=== PATIENT | female | born 1970 | race African-American/Black ===

== ENCOUNTER 2021-10-03 07:27 | Observation (INO) | payer OTHER ==
[~2021-10-03] VITALS: Ht 160 cm; Wt 96.6 kg
[2021-10-03] MEDS ORDERED: ASPIRIN 81 MG CHEW TAB PO STA (07:42)
[2021-10-03 08:32] LABS: BASOPHILS % 0.6 % (0.0-1.0); EOSINOPHILS # (AUTO) 0.3 (0.0-0.4); EOSINOPHILS % 5.5 % (0.0-6.0); HEMATOCRIT 39.5 % (34.2-44.1); HEMOGLOBIN 12.8 g/dL (12.0-16.0); LYMPHOCYTES # (AUTO) 2.2 (1.0-3.2); LYMPHOCYTES % 39.6 % (18.0-39.1); MEAN CORPUSCULAR HEMOGLOBIN 28.6 pg (28-32); MEAN CORPUSCULAR HGB CONC 32.4 g/dL (31-35); MEAN CORPUSCULAR VOLUME 88.4 fL (81-99); MONOCYTES # (AUTO) 0.4 (0.2-0.8); MONOCYTES % 7.2 % (4.4-11.3); NEUTROPHILS # (AUTO) 2.6 (2.1-6.9); NEUTROPHILS % 46.9 % (38.7-80.0); PLATELET COUNT 447 x10e3/uL (140-360); RED BLOOD COUNT 4.47 x10e6/uL (3.6-5.1); RED CELL DISTRIBUTION WIDTH 13.7 % (11.7-14.4)
[2021-10-03 08:40] LABS: INR 0.93; PARTIAL THROMBOPLASTIN TIME 30.9 seconds (23.8-35.5); PROTHROMBIN TIME 13.3 seconds (11.9-14.5)
[2021-10-03 08:50] LABS: ALBUMIN 3.5 g/dL (3.5-5.0); ALBUMIN/GLOBULIN RATIO 0.9 (0.8-2.0); ANION GAP 11.7 mmol/L (8-16); CALCIUM 7.9 mg/dL (8.4-10.2); CREATININE, SERUM 0.82 mg/dL (0.57-1.11); MAGNESIUM 1.9 MG/DL (1.3-2.1)
[2021-10-03 08:52] LABS: POTASSIUM 2.7 mmol/L (3.5-5.1)
[2021-10-03 08:56] LABS: CREATINE KINASE MB 0.5 ng/mL (0-5.0)
[2021-10-03] MEDS ORDERED: NITROGLYCERIN 0.4 MG SUBL SL PRN (09:15)
[2021-10-03] MEDS ORDERED: ONDANSETRON HCL INJ 2MG/ML 2ML 2 MG/ML VIAL IV PRN (09:15)
[2021-10-03] MEDS ORDERED: Morphine 2mg Syringe 2 MG/ML SYR IV PRN (09:15)
[2021-10-03] MEDS ORDERED: POTASSIUM CHLORIDE 20 MEQ TAB CR PO ONE ×2 (09:30→16:00)
[2021-10-03] MEDS: METOPROLOL TARTRATE 25 MG TAB PO SCH ×2 (09:36→21:10)
[2021-10-03] MEDS ORDERED: ENOXAPARIN SODIUM INJ 100 MG/ML SYR SC ONE (10:00)
[2021-10-03 12:20] VITALS: BP 169/89
[2021-10-03 12:30] VITALS: BP 169/89
[2021-10-03] MEDS ORDERED: HYDROCHLOROTHIA25 MG PO (14:57)
[2021-10-03] MEDS ORDERED: COZAAR100 MG PO (14:57)
[2021-10-03] MEDS ORDERED: AMLODIPINE BESY10 MG PO (14:57)
[2021-10-03 15:44] LABS: CREATINE KINASE MB 0.5 ng/mL (0-5.0)
[2021-10-03 16:39] VITALS: BP 152/76
[2021-10-03 20:18] VITALS: BP 120/59
[2021-10-03 21:00] VITALS: BP 120/59
[2021-10-03] MEDS: FAMOTIDINE 20 MG/2 ML VIAL IV SCH (21:29)
[2021-10-03 22:09] LABS: CREATINE KINASE MB 0.5 ng/mL (0-5.0)
[2021-10-04] VITALS (8 sets, daily range): BP systolic 119–171; BP diastolic 60–79
[2021-10-04] MEDS ORDERED: ACETAMINOPHEN 325 MG TAB PO PRN (05:00)
[2021-10-04 06:06] LABS: BASOPHILS # (AUTO) 0.1 (0.0-0.1); EOSINOPHILS # (AUTO) 0.4 (0.0-0.4); EOSINOPHILS % 7.5 % (0.0-6.0); HEMATOCRIT 39.8 % (34.2-44.1); HEMOGLOBIN 12.7 g/dL (12.0-16.0); LYMPHOCYTES # (AUTO) 2.5 (1.0-3.2); LYMPHOCYTES % 48.7 % (18.0-39.1); MEAN CORPUSCULAR HGB CONC 31.9 g/dL (31-35); MEAN CORPUSCULAR VOLUME 87.9 fL (81-99); MONOCYTES # (AUTO) 0.4 (0.2-0.8); NEUTROPHILS # (AUTO) 1.8 (2.1-6.9); NEUTROPHILS % 35.6 % (38.7-80.0); PLATELET COUNT 405 x10e3/uL (140-360); RED BLOOD COUNT 4.53 x10e6/uL (3.6-5.1); RED CELL DISTRIBUTION WIDTH 13.6 % (11.7-14.4)
[2021-10-04 06:32] LABS: ALBUMIN 3.3 g/dL (3.5-5.0); ALBUMIN/GLOBULIN RATIO 0.8 (0.8-2.0)
[2021-10-04 06:49] LABS: CREATININE, SERUM 0.68 mg/dL (0.57-1.11)
[2021-10-04] MEDS ORDERED: POTASSIUM CHLORIDE 20 MEQ TAB CR PO ONE (07:30)
[2021-10-04 08:23] LABS: CHOL/HDL RATIO 4.5 (3.0-3.6)
[2021-10-04 08:59] LABS: CREATINE KINASE MB 0.4 ng/mL (0-5.0)
[2021-10-04] MEDS: FAMOTIDINE 20 MG/2 ML VIAL IV SCH ×2 (09:09→20:38)
[2021-10-04] MEDS: ASPIRIN 81 MG ENTERIC COATED PO SCH (09:09)
[2021-10-04] MEDS: LOSARTAN POTASSIUM 100 MG TAB PO SCH (09:09)
[2021-10-04] MEDS: METOPROLOL TARTRATE 25 MG TAB PO SCH ×2 (09:10→20:39)
[2021-10-05] VITALS (13 sets, daily range): BP systolic 105–180; BP diastolic 64–96
[2021-10-05] MEDS: ASPIRIN 81 MG ENTERIC COATED PO SCH (08:21)
[2021-10-05] MEDS: FAMOTIDINE 20 MG/2 ML VIAL IV SCH (08:21)
[2021-10-05] MEDS: LOSARTAN POTASSIUM 100 MG TAB PO SCH (08:21)
[2021-10-05] MEDS: METOPROLOL TARTRATE 25 MG TAB PO SCH (08:22)
[2021-10-05] MEDS ORDERED: VERAPAMIL HCL 2.5 MG/ML 2 ML VIAL ONE (10:43)
[2021-10-05] MEDS ORDERED: HEPARIN SOD (PORCINE) 1000 UNIT/ML 30ML ONE (10:43)
[2021-10-05] MEDS ORDERED: FENTANYL CITRATE/PF 100MCG/2 ML INJ ONE (10:43)
[2021-10-05] MEDS ORDERED: MIDAZOLAM HCL 2 MG/2 ML VIAL ONE (10:43)
[2021-10-05] MEDS ORDERED: NITROGLYCERIN/D5W 200 MCG/ML 250 ML ONE (10:44)
[2021-10-05] MEDS ORDERED: LIDOCAINE HCL 2% LOCAL 20 ML VIAL ONE (10:44)
[2021-10-05] MEDS ORDERED: IOPAMIDOL 370 MG/ML 100 ML INFUS..BTL INJ ONE (10:44)
[2021-10-05] MEDS ORDERED: HEPARIN SOD/SOD CHLORIDE 2,000 ML ONE (10:44)
[2021-10-05] MEDS ORDERED: SODIUM CHLORIDE 0.9% 1000ML 1,000 ML ONE (10:44)
== END 2021-10-05 15:15 | disposition home or self-care (01) ==
LOC: ER 07:37 → INTOOBSV 09:14 → ERHOLD 09:14 → MED/SURG 12:27
PROVIDERS: ADMIT Internal Medicine; ATTEND Internal Medicine
DX: I11.0 Hypertensive heart disease with heart failure (principal); I50.23 Acute on chronic systolic (congestive) heart failure; K21.9 Gastro-esophageal reflux disease without esophagitis; R07.2 Precordial pain; E87.6 Hypokalemia; E66.01 Morbid (severe) obesity due to excess calories; Z68.37 Body mass index [BMI] 37.0-37.9, adult; E78.5 Hyperlipidemia, unspecified; R94.39 Abnormal result of other cardiovascular function study; Z88.2 Allergy status to sulfonamides; Z88.8 Allergy status to other drugs, medicaments and biological substances; Z20.822 Contact with and (suspected) exposure to COVID-19
CPT/HCPCS: 36415 ×2; 71045; 80053 ×2; 80061; 82550 ×2; 82553 ×2; 83735; 83880; 84484 ×2; 85025 ×2; 85610; 85730; 93005; 93306; 93458; 94799 ×2; 99284; C1887; G0378 ×3; J1644; J1650; J2001; J2250; J3010; J7030; Q9967; U0002; 99152

== ENCOUNTER 2022-05-02 09:27 | Emergency (ER) | payer SELFPAY ==
[~2022-05-02] VITALS: Ht 160 cm; Wt 96.6 kg
[~2022-05-02 09:27] MED LIST: AMLODIPINE BESY10 MG PO; COZAAR100 MG PO; HYDROCHLOROTHIA25 MG PO
[2022-05-02] MEDS ORDERED: KETOROLAC TROMETHAMINE 30 MG/ML VIAL IV STA (10:01)
[2022-05-02] MEDS ORDERED: ONDANSETRON HCL INJ 2MG/ML 2ML 2 MG/ML VIAL IV STA (10:01)
[2022-05-02] MEDS ORDERED: Morphine 2mg Syringe 2 MG/ML SYR IV STA (10:01)
[2022-05-02 10:14] LABS: BASOPHILS # (AUTO) 0.1 (0.0-0.1); BASOPHILS % 0.7 % (0.0-1.0); EOSINOPHILS # (AUTO) 0.2 (0.0-0.4); EOSINOPHILS % 2.1 % (0.0-6.0); HEMATOCRIT 41.1 % (34.2-44.1); HEMOGLOBIN 13.6 g/dL (12.0-16.0); LYMPHOCYTES # (AUTO) 2.1 (1.0-3.2); LYMPHOCYTES % 27.8 % (18.0-39.1); MEAN CORPUSCULAR HEMOGLOBIN 28.8 pg (28-32); MEAN CORPUSCULAR HGB CONC 33.1 g/dL (31-35); MEAN CORPUSCULAR VOLUME 86.9 fL (81-99); MONOCYTES # (AUTO) 0.4 (0.2-0.8); MONOCYTES % 5.4 % (4.4-11.3); NEUTROPHILS # (AUTO) 4.8 (2.1-6.9); NEUTROPHILS % 63.7 % (38.7-80.0); PLATELET COUNT 464 x10e3/uL (140-360); RED BLOOD COUNT 4.73 x10e6/uL (3.6-5.1); RED CELL DISTRIBUTION WIDTH 13.5 % (11.7-14.4)
[2022-05-02] MEDS ORDERED: SODIUM CHLORIDE 0.9% 500ML 500 ML IV ONE (10:15)
[2022-05-02 10:19] LABS: CLARITY,URINE HAZY (CLEAR); COLOR,URINE YELLOW (YELLOW); KETONES,URINE NEGATIVE (NEGATIVE); LEUKOCYTE ESTERASE ,URINE NEGATIVE (NEGATIVE); NITRITE,URINE NEGATIVE (NEGATIVE); PROTEIN,URINE DIPSTICK NEGATIVE (NEGATIVE); URINE UROBILINOGEN 0.2 mg/dL (0.2 - 1)
[2022-05-02 10:31] LABS: ALBUMIN 3.8 g/dL (3.5-5.0); ALBUMIN/GLOBULIN RATIO 0.8 (0.8-2.0); ANION GAP 16.2 mmol/L (8-16); CALCIUM 8.8 mg/dL (8.4-10.2); CREATININE, SERUM 0.79 mg/dL (0.57-1.11); POTASSIUM 3.2 mmol/L (3.5-5.1)
[2022-05-02 10:32] LABS: CREATINE KINASE MB 1.1 ng/mL (0-5.0)
[2022-05-02 10:36] LABS: BACTERIA,URINE MODERATE /HPF; RBC,URINE 0-5 /HPF (0-5)
[2022-05-02 10:37] LABS: AMORPHOUS SEDIMENT,URINE MANY (FEW)
[2022-05-02] MEDS ORDERED: DICYCLOMINE HCL20 MG PO (11:49)
[2022-05-02] MEDS ORDERED: ONDANSETRON ODT4 MG PO (11:49)
== END 2022-05-02 12:00 | disposition home or self-care (01) ==
LOC: ER 09:30
DX: R10.31 Right lower quadrant pain (principal); M54.50 Low back pain, unspecified; R11.0 Nausea; I10 Essential (primary) hypertension; I50.9 Heart failure, unspecified; Z96.651 Presence of right artificial knee joint
CPT/HCPCS: 36415; 74176; 80053; 81001; 82550; 82553; 83690; 84484; 85025; 87086; 99284; J1885; J2270; J2405; J7040